=== PATIENT | male | born 1945 | race Caucasian/White ===

== ENCOUNTER 2017-04-12 08:54 | Day surgery (SDC) | payer MEDICARE ==
[~2017-04-12] VITALS: Ht 180.3 cm; Wt 106.6 kg
[~2017-04-12 08:54] MED LIST: ASPIRIN LOW DOS81 M2 PO; LISINOPRIL10 MG PO; LOTRISONE EX; METOPROL TAR25 MG PO; MULTIVITAMI1 PO; NITROSTAT0.4 MG SL; OMEPRAZOLE20 M1 PO; OMEPRAZOLE20 M2 PO; OMEPRAZOLE20 MG PO; PRAVACHOL20 MG PO; PRAVASTATIN10 MG PO; TOPROL XL50 MG PO
[2017-04-12 11:58] VITALS: BP 161/89
== END 2017-04-12 11:50 | disposition home or self-care (01) ==
LOC: ENDO 08:54
PROVIDERS: ATTEND Surgery
PROC: 0DJD8ZZ Inspection of Lower Intestinal Tract, Via Natural or Artificial Opening Endoscopic (ICD-10-PCS; principal; 2017-04-12)
DX: Z12.11 Encounter for screening for malignant neoplasm of colon (principal); Z85.038 Personal history of other malignant neoplasm of large intestine; Z90.49 Acquired absence of other specified parts of digestive tract
CPT/HCPCS: G0105

== ENCOUNTER → 2018-12-12 | Outpatient (REF) | payer MEDICARE ==
[2018-12-12 08:11] LABS: HEMATOCRIT 40.3 % (39.0-50.0); MEAN CELL VOLUME 92.4 fL CALC (80.0-100.0); MEAN CORPUSCULAR HGB 32.1 pG CALC (26.0-32.0); MEAN CORPUSCULAR HGB CONC 34.7 g/L CALC (32.0-36.0); RED BLOOD COUNT 4.36 mill/uL (4.70-6.10); RED CELL DISTRI WIDTH 12.2 % (11.5-15.5)
[2018-12-12 08:42] LABS: ALBUMIN 4.1 g/dL (3.2-5.0); BILIRUBIN, TOTAL 0.8 mg/dL (0.0-1.4); CHOLESTEROL HDL RATIO 4.2 (<4.4 (CALC)); CREATININE 1.7 mg/dL (0.7-1.3); POTASSIUM 4.2 mmol/l (3.5-5.1); TOTAL PROTEIN 6.5 g/dL (6.3-8.2)
[2018-12-12 09:05] LABS: TSH, 3RD GENERATION 2.15 uIU/mL (0.47 - 4.68)
== END | disposition home or self-care (01) ==
LOC: LAB 06:55
PROVIDERS: ATTEND Nurse Practitioner
DX: E78.49 Other hyperlipidemia (principal); I10 Essential (primary) hypertension; R97.20 Elevated prostate specific antigen [PSA]

== ENCOUNTER 2019-07-06 07:13 | Emergency (ER) | payer MEDICARE ==
[~2019-07-06] VITALS: Ht 180.3 cm; Wt 113.8 kg
[~2019-07-06 07:13] MED LIST changes: -PRAVACHOL20 MG PO
[2019-07-06] MEDS ORDERED: ELIQUIS5 MG PO (07:29)
[2019-07-06] MEDS ORDERED: CEPHALEXIN500 M1 PO (07:35)
[2019-07-06] MEDS ORDERED: PREDNISONE50 MG PO (07:35)
[2019-07-06] MEDS ORDERED: ALL DAY10 MG PO (07:35)
[2019-07-06 07:53] VITALS: BP 154/92
== END 2019-07-06 08:15 | disposition home or self-care (01) ==
LOC: ED 07:13
DX: T63.441A Toxic effect of venom of bees, accidental (unintentional), initial encounter (principal); H01.9 Unspecified inflammation of eyelid; I10 Essential (primary) hypertension

== ENCOUNTER 2020-09-02 07:10 | Day surgery (SDC) | payer MEDICARE ==
[~2020-09-02 07:10] MED LIST changes: +ACETAMINOPHEN650 M1 PO; +ALL DAY10 MG PO; +CEPHALEXIN500 M1 PO; +ELIQUIS5 MG PO; +PREDNISONE50 MG PO
[2020-09-02 12:06] VITALS: BP 146/80
== END 2020-09-02 09:26 | disposition home or self-care (01) ==
LOC: ENDO 07:10
PROVIDERS: ATTEND Surgery
PROC: 0DJD8ZZ Inspection of Lower Intestinal Tract, Via Natural or Artificial Opening Endoscopic (ICD-10-PCS; principal; 2020-09-02)
DX: Z12.11 Encounter for screening for malignant neoplasm of colon (principal); K64.4 Residual hemorrhoidal skin tags; I10 Essential (primary) hypertension; I48.91 Unspecified atrial fibrillation; Z79.01 Long term (current) use of anticoagulants; Z85.038 Personal history of other malignant neoplasm of large intestine; Z90.49 Acquired absence of other specified parts of digestive tract; Z20.828 Contact with and (suspected) exposure to other viral communicable diseases

== ENCOUNTER 2023-03-18 16:54 | Emergency (ER) | payer MEDICARE ==
[~2023-03-18] VITALS: Ht 177.8 cm; Wt 113.0 kg
[2023-03-18 17:51] VITALS: BP 151/80
[2023-03-18 18:00] VITALS: BP 140/81
[2023-03-18 18:31] VITALS: BP 143/86
[2023-03-18 18:36] LABS: BASO% 0.5 % (0-3); EOS% 3.9 % (0-8); HEMATOCRIT 38.4 % (39.0-50.0); HEMOGLOBIN 12.5 g/dl (14.0-18.0); IMMATURE GRANULOCYTES 0.3 % (0.0-5.0); LYMPH% 16.8 % (15-41); MEAN CELL VOLUME 96.2 fL CALC (80.0-100.0); MEAN CORPUSCULAR HGB 31.3 pG CALC (26.0-32.0); MEAN CORPUSCULAR HGB CONC 32.6 g/dL CAL (32.0-36.0); MONO% 10.3 % (2-13); NEUT# 5.28 thou/uL (1.82-7.42); NEUT% 68.2 % (42-76); RED BLOOD COUNT 3.99 mill/uL (4.70-6.10); RED CELL DISTRI WIDTH 11.9 % (11.5-15.5)
[2023-03-18 19:00] VITALS: BP 131/82
[2023-03-18 19:17] VITALS: BP 131/82
== END 2023-03-18 19:22 | disposition home or self-care (01) ==
LOC: ED 16:54
PROVIDERS: Family Medicine
DX: J02.9 Acute pharyngitis, unspecified (principal); I10 Essential (primary) hypertension; Z95.0 Presence of cardiac pacemaker; Z20.822 Contact with and (suspected) exposure to COVID-19

== ENCOUNTER 2023-03-26 00:40 | Emergency (ER) | payer MEDICARE ==
[~2023-03-26] VITALS: Ht 180.3 cm; Wt 111.0 kg
[2023-03-26 01:32] VITALS: BP 138/79
[2023-03-26] MEDS ORDERED: NAPROXEN500 MG PO (01:42)
[2023-03-26] MEDS ORDERED: ULTRAM50 MG PO (01:54)
[2023-03-26 02:05] VITALS: BP 138/76
== END 2023-03-26 02:05 | disposition home or self-care (01) ==
LOC: ED 00:40
DX: M16.12 Unilateral primary osteoarthritis, left hip (principal); I10 Essential (primary) hypertension; Z95.0 Presence of cardiac pacemaker

== ENCOUNTER 2023-04-03 10:33 | Inpatient (IN) | payer MEDICARE ==
[2023-04-03] VITALS (21 sets, daily range): BP systolic 76–115; BP diastolic 52–70
[~2023-04-03] VITALS: Ht 180.3 cm; Wt 107.2 kg
[~2023-04-03 10:33] MED LIST changes: +NAPROXEN500 MG PO; +ULTRAM50 MG PO
[2023-04-03 11:56] LABS: BASO% 0.1 % (0-3); HEMATOCRIT 39.1 % (39.0-50.0); HEMOGLOBIN 12.6 g/dl (14.0-18.0); IMMATURE GRANULOCYTES 0.8 % (0.0-5.0); LYMPH% 6.6 % (15-41); MEAN CELL VOLUME 95.4 fL CALC (80.0-100.0); MEAN CORPUSCULAR HGB 30.7 pG CALC (26.0-32.0); MEAN CORPUSCULAR HGB CONC 32.2 g/dL CAL (32.0-36.0); MONO% 6.8 % (2-13); NEUT# 15.52 thou/uL (1.82-7.42); NEUT% 85.7 % (42-76); RED BLOOD COUNT 4.1 mill/uL (4.70-6.10); RED CELL DISTRI WIDTH 11.7 % (11.5-15.5)
[2023-04-03 12:06] LABS: ALBUMIN 3.9 g/dL (3.2-5.0); CREATININE 2.1 mg/dL (0.7-1.3); POTASSIUM 4.4 mmol/l (3.5-5.1); TOTAL PROTEIN 7.2 g/dL (6.3-8.2)
[2023-04-03 12:07] LABS: BILIRUBIN, TOTAL 1.2 mg/dL (0.2-1.3)
[2023-04-03 12:26] LABS: URINE BLOOD DIPSTICK NEGATIVE (NEGATIVE); URINE GLUCOSE - DIPSTICK NEGATIVE (NEGATIVE); URINE KETONE TRACE mg/dL (NEGATIVE); URINE LEUK ESTERASE NEGATIVE (NEGATIVE); URINE PROTEIN - DIPSTICK 100 mg/dL (NEG-TRACE); URINE SPECIFIC GRAVITY >=1.030; URINE UROBILINOGEN - DIPSTICK 0.2 E.U./dL (0.2)
[2023-04-03 12:33] LABS: URINE COLOR DK. YELLOW; URINE NITRITE - DIPSTICK POSITIVE (Negative)
[2023-04-03 12:34] LABS: URINE RBC 0-2 RBC/hpf (0-5)
[2023-04-03 12:35] LABS: URINE BACTERIA MANY hpf; URINE HYALINE CAST MANY lpf (NONE-RARE)
[2023-04-03 12:36] LABS: URINE SQUAMOUS EPITHELIAL CELL FEW EPI/hpf (0-FEW)
[2023-04-03] MEDS ORDERED: TYLENOL500 MG PO (14:49)
[2023-04-03] MEDS ORDERED: B121000 MC1 IM (14:51)
[2023-04-03] MEDS ORDERED: FOLIC ACID XX (14:51)
[2023-04-04] VITALS (10 sets, daily range): BP systolic 101–163; BP diastolic 62–83
[2023-04-04 06:02] LABS: BASO% 0.2 % (0-3); EOS% 0.7 % (0-8); IMMATURE GRANULOCYTES 0.4 % (0.0-5.0); LYMPH% 9.2 % (15-41); MEAN CELL VOLUME 96.8 fL CALC (80.0-100.0); MONO% 4.2 % (2-13); NEUT# 11.65 thou/uL (1.82-7.42); NEUT% 85.3 % (42-76); RED BLOOD COUNT 3.42 mill/uL (4.70-6.10); RED CELL DISTRI WIDTH 11.9 % (11.5-15.5)
[2023-04-04 06:10] LABS: HEMATOCRIT 33.1 % (39.0-50.0); HEMOGLOBIN 10.6 g/dl (14.0-18.0)
[2023-04-04 06:16] LABS: ALBUMIN 2.6 g/dL (3.2-5.0); BILIRUBIN, TOTAL 0.5 mg/dL (0.2-1.3); CREATININE 1.6 mg/dL (0.7-1.3); MAGNESIUM 2.1 mg/dL (1.6-2.3); POTASSIUM 4.4 mmol/l (3.5-5.1); TOTAL PROTEIN 5.1 g/dL (6.3-8.2)
[2023-04-05 03:31] VITALS: BP 123/76
[2023-04-05 04:17] VITALS: BP 123/76
[2023-04-05 05:29] LABS: BASO% 0.2 % (0-3); EOS% 1.7 % (0-8); HEMATOCRIT 33.9 % (39.0-50.0); HEMOGLOBIN 10.8 g/dl (14.0-18.0); IMMATURE GRANULOCYTES 0.5 % (0.0-5.0); LYMPH% 9.8 % (15-41); MEAN CELL VOLUME 97.1 fL CALC (80.0-100.0); MEAN CORPUSCULAR HGB 30.9 pG CALC (26.0-32.0); MEAN CORPUSCULAR HGB CONC 31.9 g/dL CAL (32.0-36.0); MONO% 5.6 % (2-13); NEUT# 8.25 thou/uL (1.82-7.42); NEUT% 82.2 % (42-76); RED BLOOD COUNT 3.49 mill/uL (4.70-6.10); RED CELL DISTRI WIDTH 11.8 % (11.5-15.5)
[2023-04-05 05:49] LABS: ALBUMIN 2.8 g/dL (3.2-5.0); BILIRUBIN, TOTAL 0.5 mg/dL (0.2-1.3); CREATININE 1.5 mg/dL (0.7-1.3); POTASSIUM 4.4 mmol/l (3.5-5.1); TOTAL PROTEIN 5.1 g/dL (6.3-8.2)
[2023-04-05 07:23] VITALS: BP 127/71
[2023-04-05 07:57] VITALS: BP 127/71
[2023-04-05] MEDS ORDERED: PREDNISONE20 MG PO (11:08)
[2023-04-05] MEDS ORDERED: CIPROFLOXACN500 MG PO (11:08)
== END 2023-04-05 13:37 | disposition home or self-care (01) | DRG 872 ==
LOC: ED 10:33 → ED-I 14:00 → ED 14:12 → MS2 14:13
PROVIDERS: Family Medicine; Nurse Practitioner Family; ADMIT Internal Medicine; ATTEND Internal Medicine
DX: A41.9 Sepsis, unspecified organism (principal); N39.0 Urinary tract infection, site not specified; B96.5 Pseudomonas (aeruginosa) (mallei) (pseudomallei) as the cause of diseases classified elsewhere; I12.9 Hypertensive chronic kidney disease with stage 1 through stage 4 chronic kidney disease, or unspecified chronic kidney disease; N18.30 Chronic kidney disease, stage 3 unspecified; R19.7 Diarrhea, unspecified; R93.5 Abnormal findings on diagnostic imaging of other abdominal regions, including retroperitoneum; M35.3 Polymyalgia rheumatica; Z95.0 Presence of cardiac pacemaker; Z85.46 Personal history of malignant neoplasm of prostate; Z85.038 Personal history of other malignant neoplasm of large intestine; Z90.49 Acquired absence of other specified parts of digestive tract
CPT/HCPCS: J0692

== ENCOUNTER 2024-09-15 14:09 | Emergency (ER) | payer MEDICARE ==
[~2024-09-15] VITALS: Ht 180.3 cm; Wt 100.0 kg
[2024-09-15] VITALS (8 sets, daily range): BP systolic 136–167; BP diastolic 67–89
[~2024-09-15 14:09] MED LIST changes: +B121000 MC1 IM; +CIPROFLOXACN500 MG PO; +FOLIC ACID XX; +MAXITROL0.11 OD; +MUPIROCIN2 % EX; +PREDNISONE20 MG PO; +TYLENOL500 MG PO
[2024-09-15] MEDS ORDERED: HYDROmorphone HCL 2 MG/AMP IM ONE (15:05)
[2024-09-15] MEDS ORDERED: FLUORESCEIN SODIUM 1 MG EA OD ONE (15:20)
[2024-09-15] MEDS ORDERED: TETRACAINE HCL 0.5 %/4 ML SOL OD ONE (15:20)
[2024-09-15] MEDS ORDERED: ISOVUE-300 (Iopamidol) 100 ML SDV IV ONE (15:30)
[2024-09-15 15:47] LABS: BASO% 0.2 % (0-3); EOS% 0.2 % (0-8); HEMOGLOBIN 11.6 g/dl (14.0-18.0); LYMPH% 14.1 % (15-41); MEAN CELL VOLUME 105.6 fL CALC (80.0-100.0); MEAN CORPUSCULAR HGB CONC 32.2 g/dL CAL (32.0-36.0); MONO% 5.8 % (2-13); NEUT# 4.09 thou/uL (1.82-7.42); NEUT% 78.7 % (42-76); RED BLOOD COUNT 3.41 mill/uL (4.70-6.10); RED CELL DISTRI WIDTH 16.6 % (11.5-15.5)
[2024-09-15 15:59] LABS: CREATININE 1.4 mg/dL (0.7-1.3); POTASSIUM 4.5 mmol/l (3.5-5.1)
[2024-09-15] MEDS ORDERED: SODIUM CHLORIDE 0.9% 1,000 ML IV ONE ×2 (17:05)
[2024-09-15] MEDS ORDERED: TRAMADOL HYDROC50 M1 PO (18:39)
[2024-09-15] MEDS ORDERED: traMADol HCL 50 MG/TAB PO ONE (18:45)
== END 2024-09-15 19:03 | disposition designated cancer center or children's hospital (05) ==
LOC: ED 14:09
PROVIDERS: Family Medicine
DX: B02.33 Zoster keratitis (principal); B02.7 Disseminated zoster
CPT/HCPCS: Q9967